=== PATIENT | female | born 1985 ===

== ENCOUNTER 2024-12-01 00:01 | Emergency (ER) | payer SELFPAY ==
--- NOTE | 2024-12-01 00:06 | PC.NURSE ---
PT CAME TO ER FROM [facility], BROUGHT BY AMBULANCE, , EMS REPORTED THAT PT FELL AND HIT HER HEAD. NO LOC, PT IS INTOXICATED.
--- NOTE | 2024-12-01 00:07 | PD.EDALCOH ---
ED Alcohol RME/HPI General Chief Complaint: Fall Stated Complaint: AMS Time Seen by Provider: 12/01/24 00:11 Arrival date/time: 12/01/24 00:01 RME / HPI RME / HPI narrative: Dr. Lopez?s Main ED Evaluation: 39yo female with no significant past medical history KHUSHI from the [facility] presents to the ED for a ground-level fall. Per EMS, they were called on scene after the patient had a witnessed fall out of the shuttle and hit the back of her head, but there was no loss of consciousness. They endorse the patient has been drinking tonight. Patient denies any headache, neck pain, chest pain, abdominal pain or any other associated symptoms. Review of Systems Review of Systems Systems Reviewed: All systems reviewed, normal except as documented ED Exam Narrative Physical exam: GENERAL APPEARANCE: alert, appears intoxicated, yelling at staff, well-developed, well-nourished, no acute distress VITALS: All vitals were reviewed and the pulse ox is % on room air, which is normal according to my interpretation. HEENT: Normocephalic, area of edema to the posterior scalp with mild fluctuance and tenderness consistent with hematoma; pupils equal, round, reactive to light; EOMI; mucous membranes pink, moist; oropharynx clear NECK: Supple LUNGS: CTABL; no wheezes, no rales, no rhonchi HEART: Regular rate, regular rhythm; normal S1, S2; no murmurs ABDOMEN: non distended; normal BS; soft, no tenderness, no guarding, no rebound; no masses, no organomegaly, no hernia BACK: no CVA tenderness EXTREMITIES: atraumatic; no edema NEUROLOGIC: awake; alert; cranial nerves II-XII grossly intact; no focal sensory or motor deficits SKIN: warm, dry, normal color; no rashes Course Quality Measures none Orders Category Date Time Status 4 HR Behavioral Restraints Q15M Care 12/01/24 00:33 Completed 1798 Psychiatric Hold NOW Care 12/01/24 00:[address] cervical spine wo con Stat Exams 12/01/24 00:[address] head/brain wo con Stat Exams 12/01/24 00:13 Taken Alcohol, Blood Medical Stat Lab 12/01/24 00:58 Completed Vital Signs Vital signs: Vital Signs Temperature 98.8 F 12/01/24 00:08 Pulse Rate 111 H 12/01/24 00:08 Respiratory Rate 18 12/01/24 00:08 Blood Pressure 169/108 H 12/01/24 00:08 Pulse Oximetry (%) 98 12/01/24 00:08 Oxygen Delivery Method Room Air 12/01/24 00:08 Discharge Plan Plan Patient Disposition: HOME (Self Care) Problem List Clinical Impression: Alcohol intoxication, Head injury Patient/Caregiver Discharge Instructions Education Materials: ED Alcohol Intoxication, ED Head Injury (Adult) Print Language: Korean Stand Alone Forms: [facility] Award Info., Patient Portal Info Letter Alcohol MDM Narrative MDM Narrative: Scribe Attestation: 12/01/24 - Rosie Rodríguez am scribing for and in the presence of Dr. Lopez. 0015: Patient placed on a 1799 hold out of concern for her safety. 0035: Patient is being belligerant and yelling at staff. Multiple attempts have been made to redirect the patient without any success. 4-point restraints ordered. 0130: Patient's restraints removed. Patient is being cooperative and is requesting to use the restroom. 0325: Patient is resting comfortably. Patient sent to CT. 0410: CT head is unremarkable. Patient's cousin is here and states they are okay with assuming responsibility of the patient and taking her home. I rescinded the 1799 hold. Patient is stable to be discharged into her cousin's care. Patient data External records reviewed:: [facility] previous records (Per chart review, patient has no previous ED visits or admissions to this facility.) Clinical information provided by:: patient and EMS Social determinants that could affect healthcare access:: alcohol use Patient has the following chronic illnesses:: none How is presenting disease/condition affected by chronic disease/condition?: no chronic disease Evaluation data The following diagnostics were reviewed and interpreted by me:: lab results and radiology exam(s) Lab and/or radiology exams considered but not ordered:: none Interpretation Summary: Blood alcohol is 364.1. Telerad Preliminary Report Draft Patient: ESTEVAN PHAN. Record#: [id number] Birthdate: 1985 Age/Sex: 39 / F Location: [facility] Attending Dr: Ordering Physician: Date of Service: Procedure(s): Accession Number(s): cc: ~ CT scan of the head without intravenous contrast (axial sections with sagittal and coronal reformats) December 01, 2024 0328 hours Clinical History: fall, head injury Findings: The evaluation is slightly limited due to motion artifact. No evidence of intracranial hemorrhage, mass effect or midline shift. The ventricles and CSF spaces are unremarkable. The calvarium is intact. The mastoid air cells and the visualized paranasal sinuses are clear. There is small hematoma in the right parietal scalp. Impression: No evidence of intracranial hemorrhage, midline shift or calvarial fracture. Report Electronically Signed By: Dl Bo 12/01/2024 4:03:23 AM Medications / Prescriptions Medications or Prescriptions considered but not ordered:: none Medication administrations:: none Consultations Consultation(s) initiated? (list below): No Diagnosis Differential diagnosis alcohol: alcohol intoxication and other (head injury, skull fracture, concussion, hematoma, scalp contusion) Most likely diagnosis given after review of the tests above:: see clinical impression below Admission Indicated Admission indicated?: not indicated Admission Request Was there a request for admission?: No Disposition Plan Disposition Plan: Discharge Discharge Attestation Discharge Attestation: The patient and all family members were given an opportunity to ask questions and understood the discharge instructions. Discharge instructions specifically effects, indications for sooner follow up or return to the emergency department, and the expected course of current diagnosis. Patient condition: Stable
[2024-12-01 00:08] VITALS: BP 169/108; PULSE 111; RESP 18; TEMP 37.1; O2SAT 98
--- NOTE | 2024-12-01 00:13 | XR_ITS ---
Examination: CT brain head without contrast. 2-D sagittal coronal reconstructions Date and time of exam:December 01, 2024 at 0328 hours INDICATIONS: Patient fell today with injury to the head, head pain CTDI: vol (mGy):50.5 DLP: (mGycm):1120 Technique: Multiple CT axial sections of the brain have been obtained, 5 mm slice thickness. Contrast has not been administered. 2-D sagittal, coronal reconstructions have been obtained Low dose protocols were performed. One or more of the following dose reduction techniques were used; automated exposure control, adjustment of the mA and/or KV according to patient size, use of iterative reconstruction technique. Findings: No significant ventricular enlargement. Intra-axial or extra-axial hemorrhage density is not seen. No mass effect or midline shift Basal cisterns are not remarkable. Fourth ventricle is midline. Cranial vault intact. Soft tissue swelling posterior right scalp Impression: Negative for acute hemorrhage, mass effect or midline shift
--- NOTE | 2024-12-01 01:45 | PC.NURSE ---
PT ASKED TO GO TO BATHROOM, RESTRAINT REMOVED AND ASSITED TO BATHROOM.
[2024-12-01 02:06] LABS: Alcohol, Blood Medical 364.1 mg/dL (0-10.0)
--- NOTE | 2024-12-01 02:11 | PC.NURSE ---
PT REFUSED TO GO TO CT EVEN AFTER MULTIPLE ENCOURAGEMENTS TO GO TO CT.
--- NOTE | 2024-12-01 02:48 | PC.NURSE ---
PT CALM LAYING ON THE GURNEY.
--- NOTE | 2024-12-01 03:09 | PC.NURSE ---
RECIVED CALL FROM PERSON THAT STATES HE IS A COUSIN OF PT. HE IS WILLING TO MARINE PLUMBER PT WHEN DISCHARGED. [phone] (AIMEE)
--- NOTE | 2024-12-01 03:40 | PC.NURSE ---
WE TOOK PT TO CT VIA [facility], PT IS UNCOOPERATIVE, CATRACHITO WHEEL SETTER ABLE TO DO HEAD CT PT LAYING SIDE WAYS, UNABLE TO DO NECK CT.
--- NOTE | 2024-12-01 04:03 | PRELIM_ITS ---
CT scan of the head without intravenous contrast (axial sections with sagittal and coronal reformats) December 01, 2024 0328 hours Clinical History: fall, head injury Findings: The evaluation is slightly limited due to motion artifact. No evidence of intracranial hemorrhage, mass effect or midline shift. The ventricles and CSF spaces are unremarkable. The calvarium is intact. The mastoid air cells and the visualized paranasal sinuses are clear. There is small hematoma in the right parietal scalp. Impression: No evidence of intracranial hemorrhage, midline shift or calvarial fracture. Report Electronically Signed By: Dl Bo 12/01/2024 4:03:23 AM [EST]
[2024-12-01 04:24] VITALS: RESP 18
== END 2024-12-01 04:25 | disposition home or self-care (01) ==
LOC: SERX 05:38
PROVIDERS: Emergency Provider Emergency Medicine
DX: S00.03XA Contusion of scalp, initial encounter (principal); W18.30XA Fall on same level, unspecified, initial encounter; F10.129 Alcohol abuse with intoxication, unspecified; Y90.8 Blood alcohol level of 240 mg/100 ml or more
CPT/HCPCS: 36415; 70450; 80320; 99285; G0480